=== PATIENT | male | born 1995 | race Caucasian/White ===

== ENCOUNTER 2021-08-01 10:38 | Emergency (ER) | payer BC ==
[2021-08-01 11:32] LABS: HEMOGLOBIN 14.8 gm/dl (14.0-17.5); RED BLOOD COUNT 5.15 M/UL (4.20-5.50); WHITE BLOOD COUNT 6.3 K/UL (4.5-11.0)
[2021-08-01 11:53] LABS: BUN/CREATININE RATIO 21 (0-10)
[2021-08-01] MEDS ORDERED: ZOFRAN4 MG PO (13:07)
[2021-08-01] MEDS ORDERED: MECLIZINE HCL25 MG PO (13:07)
== END 2021-08-01 13:32 | disposition home or self-care (01) ==
LOC: ER1 10:38
PROVIDERS: Physician Assistant
DX: R42 Dizziness and giddiness (principal); R11.0 Nausea; Z20.822 Contact with and (suspected) exposure to COVID-19
CPT/HCPCS: 71045; 80053; 84439; 84443; 85025; 85652; 93005; 99284; U0003